=== PATIENT | male | born 1995 | race Caucasian/White ===

== ENCOUNTER 2019-02-13 16:25 | Emergency (ER) | payer SELFPAY ==
--- NOTE | 2019-02-13 16:45 | ED Physician Documentation ---
General Adult - HISTORIAN Historian: patient - HPI Stated Complaint: laceration to right thumb x2 days ago needs work note Chief Complaint: Laceration/Recheck/Suture Onset: days ago (2) Timing: better Severity: mild Further Comments: yes (he states two days ago he was cleaning a glass in the sink and he did put his hand in the glass to clean it and the glass broke. He had a flat tire so he did not go to the ER. He did place some "skin glue" on the laceration. No further bleeding. He has no pain. No other complaints. He needs a work note for today.) - ROS CONST: no problems - PAST HX Past History: none Immunizations: UTD Allergies/Adverse Reactions: Allergies Allergy/AdvReac Type Severity Reaction Status Date / Time Penicillins Allergy Verified 02/13/19 16:47 Home Medications: Ambulatory Orders Medication Instructions Recorded Clindamycin HCl [Cleocin] 300 mg PO QID #40 capsule 11/24/13 - SOCIAL HX Smoking History: cigarettes Alcohol Use: none Drug Use: none - FAMILY HX Family History: No - VITAL SIGNS Vital Signs: Vital Signs Temp Pulse Resp BP Pulse Ox 98.4 F 70 16 107/64 98 02/13/19 16:27 02/13/19 16:27 02/13/19 16:27 02/13/19 16:27 02/13/19 16:27 - REVIEWED ASSESSMENTS Nursing Assessment Reviewed: Yes Vitals Reviewed: Yes General Adult Physical Exam - PHYSICAL EXAM GENERAL APPEARANCE: no distress EENT: eye inspection normal, no signs of dehydration NECK: normal inspection RESPIRATORY: no resp distress, chest non-tender, breath sounds normal CVS: reg rate & rhythm, heart sounds normal ABDOMEN: soft, no distension BACK: normal inspection SKIN: warm/dry, other (laceration closed and without concern right 5th finger approx 2 cm. Closed. FROM. Pulses + no bleeding. Sensation ++) EXTREMITIES: non-tender, normal range of motion, no evidence of injury, no edema NEURO: oriented X3 Discharge Clincal Impression: Laceration of right thumb Qualifiers: Encounter type: initial encounter Damage to nail status: unspecified Foreign body presence: without foreign body Qualified Code(s): S61.011A - Laceration without foreign body of right thumb without damage to nail, initial encounter Referrals: Primary Doctor,No [Primary Care Provider] - 2 Days Comments: 1. Keep area clean and dry 2. Follow up with PCP for extended work note 3. Return to ER for any increasing concerns Condition: Stable Disposition: 01 HOME, SELF-CARE Decision to Admit: NO Date of Decison to Admit: 02/13/19 Decision Time: 16:58
[2019-02-13 16:47] VITALS: BP 107/64
== END 2019-02-13 16:57 | disposition home or self-care (01) ==
LOC: ED 16:25
DX: S61.011A Laceration without foreign body of right thumb without damage to nail, initial encounter (principal); W25.XXXA Contact with sharp glass, initial encounter; Y99.8 Other external cause status
CPT/HCPCS: 99282